=== PATIENT | male | born 1935 | race Caucasian/White ===

== ENCOUNTER 2016-07-18 14:00 | Inpatient (IN) | payer MEDICARE ==
[~2016-07-18] VITALS: Ht 170.2 cm; Wt 85.8 kg
[2016-08-05] MEDS ORDERED: MULTTAB67 PO (09:36)
[2016-08-05] MEDS ORDERED: ROSU5 PO (11:36)
[2016-08-05] MEDS ORDERED: NEXI20CA PO (11:36)
[2016-08-05] MEDS ORDERED: DONE10TA7 PO (11:39)
[2016-08-05] MEDS ORDERED: ESCI20TA PO (14:17)
[2016-08-05] MEDS ORDERED: ASPI-110 PO (14:17)
[2016-08-05] MEDS ORDERED: MEMA1TAB2 PO (14:17)
--- NOTE | 2016-08-11 09:20 | MH ---
cc: Hal BAROLW M.D. DATE OF ADMISSION: 08/15/2016 ADMITTING DIAGNOSIS: Osteoarthritic degeneration of right knee. ADMISSION HISTORY AND PHYSICAL This pleasant 81-year-old male is being admitted today for a right total knee arthroplasty due to severe painful osteoarthritic degeneration. OTHER PAST HISTORY The patient has a history of - 1. Depression. 2. Prostate cancer. 3. Heart disease. 4. Hernia. 5. Sleep apnea. 6. Previous stroke. CURRENT MEDICATIONS 1. Nexium. 2. Lipitor. 3. Escitalopram. 4. Donepezil. 5. Memantine hydrochloride. 6. . PREVIOUS SURGERIES 1. Heart bypass in 1998. 2. Right knee surgery many years, 3. Cervical fusion C4-5. REVIEW OF SYSTEMS Noncontributory. FAMILY HISTORY Noncontributory. SOCIAL HISTORY Does not smoke or drink. ALLERGIES CIPRO, SULFA, JEAN-PAUL-POLYSPORIN, ROXICET, AUGMENTIN. PHYSICAL EXAMINATION GENERAL: We find a 81-year-old male, well-developed, well-nourished, oriented x 3, complaining of pain in his right knee. VITAL SIGNS: Blood pressure 130/82, pulse 78 and regular, respirations 16, temperature 98.0, pulse oximetry 97% on room air. HEAD, EYES, EARS, NOSE, AND THROAT: Eyes - pupils equal, round, reactive to light and accommodation; extraocular movements intact. Ears, nose and throat clear. NECK: Supple. LUNGS: Clear. HEART: Regular rate. ABDOMEN: Soft, positive bowel sounds, nontender. EXTREMITIES: Reveals the right knee to have range of motion -5 with extension and 90 with flexion with a 3+ anterior drawer. He is neurovascularly intact. IMPRESSION AT THIS TIME Severe painful osteoarthritic degeneration of right knee. PLAN The plan is admission for right total knee arthroplasty today. The patient given a prescription for postoperative pain and anticoagulation control in the office. Understands to use Hibiclens scrub and Bactroban. Plans on going home with home health care after his stay in the hospital. MD HAKAN Paulson/PEDRO /3:43 PM /9:12 AM
[2016-08-15] MEDS ORDERED: CLINDAMYCIN INJ 900 MG in SODIUM CHLORIDE 0.9% INJ 100 ML IV SCH ×2
[2016-08-15] MEDS ORDERED: LACTATED RINGER'S 1000 ML INJ 2,000 ML IV ONE (12:00)
[2016-08-15] MEDS ORDERED: PROPOFOL 200 MG/20 ML AMP IV ONE (12:00)
[2016-08-15] MEDS ORDERED: ONDANSETRON HCL 4 MG/2 ML VIAL IV PUSH ONE (12:00)
[2016-08-15] MEDS ORDERED: ROPIVACAINE 0.5% PF INJ 30 ML VIAL NERV BLOCK ONE (12:19)
[2016-08-15] MEDS ORDERED: POVIDONE IODINE 5% (ANTISEPSIS KIT) 4 APPLICATIONS EACH NARE PRN (13:15)
[2016-08-15] MEDS ORDERED: VANCOMYCIN 1000 MG/NS 250 ML (for <70 kg) IV SCH ×2 (13:15)
[2016-08-15] MEDS ORDERED: METOPROLOL TARTRATE 25 MG TAB PO PRN (13:15)
[2016-08-15] MEDS ORDERED: CHLORHEXIDINE GLUCONATE 2 % 1 PACK (2 CLOTHS) TOPICAL PRN (13:15)
[2016-08-15] MEDS ORDERED: SODIUM CHLORID 0.9% 500 ML IV PRN (13:15)
[2016-08-15] MEDS ORDERED: LACTATED RINGER'S 1000 ML IV PRN (13:15)
[2016-08-15] MEDS ORDERED: INSULIN HUMAN REGULAR 1,000 UNITS/10 ML VIAL SQ PRN (13:15)
[2016-08-15] MEDS ORDERED: CHLORHEXIDINE GLUCONATE 4% SOLN 120 ML BTL TOPICAL SCH (13:15)
[2016-08-15] MEDS ORDERED: ceFAZolin 2 GM PREMIX 50 ML IV SCH (13:15)
[2016-08-15 13:35] VITALS: BP 159/77; PULSE 59; RESP 16; TEMP 97.9; O2SAT 96
[2016-08-15] MEDS ORDERED: TRANEXAMIC ACID INJ 857 MG in SODIUM CHLORIDE 0.9% INJ 100 ML IV SCH ×2 (14:00→18:00)
[2016-08-15] MEDS ORDERED: ceFAZolin INJ 1,000 MG VIAL ONE (15:00)
[2016-08-15] MEDS ORDERED: EXPAREL PERI-ARTICULAR INJECTION (TOTAL VOL. 120 ML) P-ARTICULR SCH ×2 (15:00)
[2016-08-15] MEDS ORDERED: TOBRAMYCIN SULFATE 1200 MG VIAL ONE (15:11)
[2016-08-15] MEDS ORDERED: DEXAMETHASONE SOD PHOS 4 MG/ML VIAL ONE (15:51)
[2016-08-15] MEDS ORDERED: FAMOTIDINE 20 MG/2 ML VIAL ONE (15:51)
--- NOTE | 2016-08-15 16:26 | HHI.FF ---
Face to Face Verification Diagnosis: (1) Status post total right knee replacement Physical Therapy Gait training Knee: Total knee, Protocol: Right, Gait training, Full weight bearing Nursing RN: 3 days/week x 2 weeks Nursing: Raghu teaching, Dressing changes Dressing Changes: Daily dressing change, 4x4s, Gauze, Paper tape I have seen patient Binu Botello on 08/15/16. My clinical findings support the need for the requested home health care services because: Limited ability to care for self High risk of falls I certify that my clinical findings support that this patient is homebound because: Unsteady gait/balance Hal Do MD Aug 15, 2016 16:26
[2016-08-15] MEDS ORDERED: ADJUSTABLE COMM1 MIS (16:28)
[2016-08-15] MEDS ORDERED: WALKER WHEELS/F1 MIS (16:28)
[2016-08-15] MEDS ORDERED: Post-op Orders (for Pharmacy) MISC XX ONE (16:30)
[2016-08-15] MEDS ORDERED: MORPHINE SULFATE 30 MG/30 ML PCA IV SCH (16:30)
[2016-08-15] MEDS ORDERED: NALOXONE HCL 0.4 MG/ML AMP IV PRN ×2 (16:30)
[2016-08-15] MEDS ORDERED: ACETAMINOPHEN 325 MG TAB PO PRN (16:30)
[2016-08-15] MEDS ORDERED: ACETAMINOPHEN/HYDROcodone 325 MG/7.5 MG TAB PO PRN (16:30)
[2016-08-15] MEDS ORDERED: SODIUM CHLORIDE 0.9% FLUSH 5 ML FLUSH IVF PRN (16:30)
[2016-08-15] MEDS ORDERED: TRANEXAMIC ACID INJ 0 MG in SODIUM CHLORIDE 0.9% INJ 100 ML IV SCH (16:30)
[2016-08-15] MEDS ORDERED: TEMAZEPAM 15 MG CAP PO PRN (16:30)
[2016-08-15] MEDS ORDERED: diphenhydrAMINE HCL 50 MG/ML VIAL IV PRN (16:30)
[2016-08-15] MEDS ORDERED: ONDANSETRON HCL 4 MG/2 ML VIAL IVP PRN (16:30)
[2016-08-15] MEDS: LACTATED RINGER'S 1000 ML INJ 1,000 ML IV SCH (19:05)
--- NOTE | 2016-08-15 19:06 | PD.CONS ---
HPI Service [facility] Consult Requested By Orthopedic surgery Reason for Consult Medical management Primary Care Physician Meera Vargas DO Diagnoses: History of Present Illness 81-year-old man with a history of end-stage right knee osteoarthritis x several years duration, who despite medical management continue to have severe right knee pain affecting his daily living of activity including ambulation was taken to the OR and underwent right total knee arthroplasty. Patient was seen in PACU and denies any shortness of breath or chest pain. Vitals at the time are stable Review of Systems Except as stated in HPI: all other systems reviewed are Neg Past Family Social History Allergies: Coded Allergies: Augmentin (Unverified Allergy, Severe, unknown, 08/05/16) Bactrim (Unverified Allergy, Severe, unknown, 08/05/16) Cipro (Unverified Allergy, Severe, hives, 08/05/16) Neosporin (Unverified Allergy, Severe, hives and blistering, 08/05/16) Roxicet (Unverified Allergy, Severe, Rash, 08/05/16) Sulfa (Unverified Allergy, Severe, unknown, 08/05/16) Tramadol (Verified Allergy, Severe, RASH, 08/05/16) Past Medical History 1. Depression. 2. Prostate cancer. 3. Heart disease. 4. Hernia. 5. Sleep apnea. 6. Previous stroke. Past Surgical History Status post right total knee arthroplasty 08/15/16 Hernia repair Reported Medications 1. Nexium. 2. Lipitor. 3. Escitalopram. 4. Donepezil. 5. Memantine hydrochloride. Family History Noncontributory Social History No report of tobacco, alcohol or illicit drug intake Physical Exam Vital Signs Vital Signs Date Time Temp Pulse Resp B/P Pulse Ox O2 Delivery O2 Flow Rate FiO2 08/15/16 13:35 97.9 59 16 159/77 96 Physical Exam GENERAL: This is a well-nourished, well-developed patient, in no apparent distress. SKIN: No rashes, ecchymoses or lesions. Cool and dry. HEAD: Atraumatic. Normocephalic. No temporal or scalp tenderness. EYES: Pupils equal round and reactive. Extraocular motions intact. No scleral icterus. No injection or drainage. ENT: Nose without bleeding, purulent drainage or septal hematoma. Throat without erythema, tonsillar hypertrophy or exudate. Uvula midline. Airway patent. NECK: Trachea midline. No JVD or lymphadenopathy. Supple, nontender, no meningeal signs. CARDIOVASCULAR: Regular rate and rhythm without murmurs, gallops, or rubs. RESPIRATORY: Clear to auscultation. Breath sounds equal bilaterally. No wheezes , rales, or rhonchi. GASTROINTESTINAL: Abdomen soft, non-tender, nondistended. No hepato-splenomegaly , or palpable masses. No guarding. MUSCULOSKELETAL: Extremities without clubbing, cyanosis, or edema. Right knee repair-neurovascular intact NEUROLOGICAL: Awake and alert. Cranial nerves II through XII intact. Motor and sensory grossly within normal limits. Five out of 5 muscle strength in all muscle groups. Normal speech. Laboratory Laboratory Tests Test 08/15/16 13:40 Blood Type A POSITIVE Antibody Screen NEGATIVE Blood Bank Comment Assessment and Plan Assessment and Plan 81-year-old man with Right knee osteoarthritis: Status post right total knee arthroplasty 08/15/16. Management per orthopedic surgery, continue current postop care with pain management, postop antibiotics, antiemetics. PT consult to treat and eval Dementia: Continue outpatient medication including Namenda and Aricept Anxiety: Continue Lexapro DVT prophylaxis: Lovenox Thank you for this consultation Code Status Full code Discussed Condition With patient Johnnie Hale MD Aug 15, 2016 19:05
[2016-08-15] MEDS ORDERED: ENALAPRILAT 1.25 MG/ML VIAL IV PUSH PRN (19:15)
[2016-08-15] MEDS ORDERED: RESP: ALBUTEROL 2.5 MG/IPRATROPIUM 0.5 MG NEB (PRN) NEB (19:15)
--- NOTE | 2016-08-15 19:26 | RADRPT ---
EXAM DATE/TIME: 08/15/2016 19:03 [facility] COMPARISON: No previous studies available for comparison. INDICATIONS : Evaluate right knee post arthroplasty MEDICAL HISTORY : Arthritis. SURGICAL HISTORY : None. ENCOUNTER: Initial ACUITY: 1 day PAIN SCORE: 0/10 LOCATION: Right Knee FINDINGS: Patient is immediately status post right total knee arthroplasty. No fracture. Alignment is normal. CONCLUSION: Right knee arthroplasty has an expected postoperative appearance. No evidence of acute complication. Osman Moreno MD on August 15, 2016 at 19:24 Board Certified Radiologist. This report was verified electronically.
[2016-08-15] MEDS ORDERED: DO NOT ADM ANY ANTICOAGULANT DRUGS PRN (19:30)
[2016-08-15 20:31] VITALS: BP 182/95; PULSE 102; RESP 19; TEMP 96.7; O2SAT 98
[2016-08-15 20:44] VITALS: O2SAT 100
[2016-08-15] MEDS: SODIUM CHLORIDE 0.9% FLUSH 5 ML FLUSH IVF SCH (21:25)
[2016-08-15] MEDS: PCA - TOTAL MG MORPHINE DELIVERED PER SHIFT SCH (21:30)
[2016-08-15] MEDS: DONEPEZIL HCL 5 MG TAB PO SCH (21:30)
[2016-08-15] MEDS: MEMANTINE HCL 10 MG TAB PO SCH (21:30)
[2016-08-15] MEDS: ceFAZolin 1,000 MG/NS 100 ML IV SCH ×2 (23:15)
[2016-08-16] VITALS (8 sets, daily range): BP systolic 114–151; BP diastolic 61–84; PULSE 59–89; RESP 16–19; TEMP 96.4–99.6; O2SAT 92–99
[2016-08-16] MEDS: LACTATED RINGER'S 1000 ML INJ 1,000 ML IV SCH ×2 (05:33→18:00)
[2016-08-16] MEDS: PCA - TOTAL MG MORPHINE DELIVERED PER SHIFT SCH ×2 (05:49→12:22)
[2016-08-16 06:25] LABS: HEMATOCRIT 35.9 % (39.0-51.0); REVIEW FLAG FINAL
[2016-08-16] MEDS ORDERED: NON-FORMULARY DRUG (Multiple Vitamin 1 TAB) PO SCH (09:00)
[2016-08-16] MEDS ORDERED: NON-FORMULARY DRUG (Rosuvastatin (Crestor) 5 MG) PO SCH (09:00)
[2016-08-16] MEDS: SODIUM CHLORIDE 0.9% FLUSH 5 ML FLUSH IVF SCH ×2 (09:00→20:27)
[2016-08-16] MEDS ORDERED: NON-FORMULARY DRUG (Esomeprazole DR (Nexium) 20 MG) PO SCH (09:00)
[2016-08-16] MEDS ORDERED: MULTIVITAMIN TAB PO SCH (09:00)
[2016-08-16] MEDS: ASPIRIN EC 81 MG TABEC PO SCH (09:06)
[2016-08-16] MEDS: PANTOPRAZOLE SOD 20 MG DELAYED RELEASE TAB PO SCH (09:06)
[2016-08-16] MEDS: ESCITALOPRAM OXALATE 20 MG TAB PO SCH (09:06)
[2016-08-16] MEDS: ATORVASTATIN 10 MG TAB PO SCH (09:06)
[2016-08-16] MEDS: ceFAZolin 1,000 MG/NS 100 ML IV SCH ×4 (09:06→16:27)
[2016-08-16] MEDS: MEMANTINE HCL 10 MG TAB PO SCH ×2 (09:06→20:26)
[2016-08-16] MEDS ORDERED: CPMMACHINE (11:27)
--- NOTE | 2016-08-16 11:43 | PD.ORT.PN ---
Subjective Post Op Day #: 1 Pain Scale: 0-2 Subjective Remarks Resting in bed; at bedside CPM on right knee No N/V; tolerating food well pain controlled No BM Leg still numb (block) Objective Vitals Vital Signs Date Time Temp Pulse Resp B/P Pulse Ox O2 Delivery O2 Flow Rate FiO2 08/16/16 09:44 21 08/16/16 08:10 96.4 64 18 143/77 99 08/16/16 04:16 96.7 64 18 118/62 97 08/16/16 00:28 96.7 59 18 151/84 98 08/15/16 21:30 16 08/15/16 20:44 100 Nasal Cannula 2.00 08/15/16 20:31 96.7 102 19 182/95 98 08/15/16 19:50 50 17 150/88 100 Nasal Cannula 2 08/15/16 19:05 18 08/15/16 19:00 51 17 145/87 100 Nasal Cannula 2 08/15/16 18:45 54 13 141/81 98 Nasal Cannula 2 08/15/16 18:41 97.5 56 15 133/73 98 Nasal Cannula 2 08/15/16 13:35 97.9 59 16 159/77 96 I/O 08/15/16 08/15/16 08/15/16 08/16/16 08/16/16 08/16/16 06:59 14:59 22:59 06:59 14:59 22:59 Intake Total 2473 ml 896 ml Output Total 200 ml 1250 ml Balance 2273 ml -354 ml Intake Oral 460 ml 240 ml IV Total 513 ml 656 ml Other 1500 ml Output Urine Total 0 ml 1250 ml Estimated Blood Loss 200 ml Bladder Scan Volume Amount 999 ml # Voids 2 # Bowel Movements 0 0 Result Diagram: 08/16/16 0533 Imaging Last 24 hours Impressions Knee X-Ray 08/15/16 1622 Signed Impressions: Service Date/Time: Monday, August 15, 2016 19:03 - CONCLUSION: Right knee arthroplasty has an expected postoperative appearance. No evidence of acute complication. Osman Moreno MD Objective Remarks POD 1 Right Total Knee Arthroplasty Normal post progress Awake, Alert X3; No acute distress Pulmonary: Normal Respiratory effect Right knee: dressing, dry and intact; coolant; nvi, no calf tenderness; negative Homans sign Assessment & Plan Ortho Post Op Day #: 1 Problem List: Assessment and Plan POD 1 Right Total Knee Arthroplasty Doing well normal postop progress; no complaints Anticoagulation: Lovenox while in hospital Weight bearing: as tolerated; once feeling awake Dressing change: POD 2 PT on going Discharge planning in progress DC [facility] today at 1800 Rayne Pace Aug 16, 2016 11:43
--- NOTE | 2016-08-16 12:35 | MP ---
cc: Hal BARLOW M.D. DATE OF SURGERY 08/15/2016 PREOPERATIVE DIAGNOSIS Osteoarthritic degeneration right knee. POSTOPERATIVE DIAGNOSIS Osteoarthritic degeneration right knee. SURGERY PERFORMED Right total knee arthroplasty using Consensus Knee System components, size 5 femur, 3 tibia, 10 insert and size 1 patella with two batches of DePuy cement impregnated with Tobramycin antibiotic. SURGEON Dr. Barlow OPERATING THEATRE TECHNICIAN RE Brown ANESTHESIA Spinal. PROCEDURE After successful induction of anesthesia, the patient is placed on the operating room table in the supine position. The knee is prepped and draped in the usual manner. A tourniquet is inflated at the upper thigh and set to 300 mmHg pressure after exsanguination of the lower extremity. A longitudinal incision is made extending from 3 inches proximal to the superior pole of the patella, across the patella in longitudinal fashion, and down past the insertion of the tibial tubercle into the proximal tibia. The incision is carried down through subcutaneous tissue along the medial aspect of the patella and retinaculum, down through the capsule to expose the knee joint. The patella and patellar tendon are freed up enough to allow the patella to be inverted and retracted off the lateral side of the knee joint. The knee joint is left exposed. Small osteophytes are removed. All soft tissue is removed to allow proper position of the femoral and tibial cutting jig guide. The first femoral jig is then inserted along the distal end of the femur after first measuring to decide whether this is a small, medium, or large component. The notch is then drilled and the tibial cutting guide inserted into the femoral cutting guide, along with the ankle brace to allow for proper measurement of the tibial cutting surface that needed to be resected. Pins are inserted into the tibial cutting jig and femoral cutting jig to hold them in place. An oscillating saw is then used to resect the surface of the tibia. The surface of the tibia is then completely removed using sharp and blunt dissection. The anterior and posterior cuts of the femur are then made as well using an oscillating saw through the cutting guide. All guides are then removed and the varus/valgus angulation cutting guide applied to the femur for proper measurement of the proper amount of valgus. The anterior cutting guide for the femur is then inserted at the anterior femoral cuts made. Next, the first block trial is inserted into the femur to allow for proper condyle drill holes to be made which are then made followed by removal of the bone between the condyles using an oscillating saw as well as the bone removed at the most posterior surface of the condyle. After this, this guide is removed and the chamfer cuts made using the chamfer cutting guide from both anterior and posterior. Next, the femoral trial is then inserted, the tibial surface reflected anterior to expose the tibial surface and a tibial stem guide is inserted after first measuring for a standard, standard plus, large, or large plus surface to be used. After the stem is impacted the trial tibial surface is applied followed by the trial meniscal components. After full range of motion is found with the appropriate length meniscal components varying the patella is prepared by resecting the posterior aspect of the patella using an oscillating saw, inserting a trial. The trial is then removed and the cruciate cutting guide applied using the bur to cut the cruciate cuts. After cruciate cuts are made all trials are removed. The wound is irrigated copiously with antibiotic solution and Water Pik and the actual components inserted into place using Consensus Knee System components, size 5 femur, 3 tibia, 10 insert and size 1 patella with two batches of Rent.comuy cement. After the cement has hardened and the components are found to have full range of motion with no instability, the tourniquet is deflated, total tourniquet time being 48 minutes at 300 mmHg pressure. The wound again is irrigated copiously with antibiotic solution, meticulous hemostasis achieved. 60 cc of Exparel was used around the knee joint for extra pain control. The deep fascia was approximated with running #2 Quill, the subcutaneous tissue approximated using interrupted and running 2-0 and 4-0 Monocryl suture, Steri-Strips, sterile dressing and knee immobilizers. No drain utilized. Rayne GRIMALDO was present during the entire procedure to include patient positioning and the procedure. The medical necessity a nurse practitioner machinist first class was indicated in this case due to the surgical complexity of the case itself. During the surgical case, the surgical resident was working the back table while my ophthalmology surgical technician RE was directly assisting me. The patient tolerated the procedure well and left the operating in satisfactory condition. ESTIMATED BLOOD LOSS 200 cc. MD HAKAN Paulson/MAMTA /6:26 PM /12:28 PM ARABELLA
--- NOTE | 2016-08-16 15:26 | HHI.PR ---
Subjective Remarks Patient in bed, appears in nad. at bedside. Patient says he is using CPAP at night usually and says he has hi sown cpap but was not installed overnight. He is not sob, No cp, sob, n/v/d/c. Denies fever or chills. Pain is controlled by meds. Objective Vitals Vital Signs Date Time Temp Pulse Resp B/P Pulse Ox O2 Delivery O2 Flow Rate FiO2 08/16/16 12:22 97.4 70 16 134/80 96 08/16/16 12:22 18 08/16/16 09:44 21 08/16/16 08:10 96.4 64 18 143/77 99 08/16/16 04:16 96.7 64 18 118/62 97 08/16/16 00:28 96.7 59 18 151/84 98 08/15/16 21:30 16 08/15/16 20:44 100 Nasal Cannula 2.00 08/15/16 20:31 96.7 102 19 182/95 98 08/15/16 19:50 50 17 150/88 100 Nasal Cannula 2 08/15/16 19:05 18 08/15/16 19:00 51 17 145/87 100 Nasal Cannula 2 08/15/16 18:45 54 13 141/81 98 Nasal Cannula 2 08/15/16 18:41 97.5 56 15 133/73 98 Nasal Cannula 2 I/O 08/15/16 08/15/16 08/15/16 08/16/16 08/16/16 08/16/16 07:00 15:00 23:00 07:00 15:00 23:00 Intake Total 2473 ml 896 ml 442 ml Output Total 200 ml 1250 ml 300 ml Balance 2273 ml -354 ml 142 ml Intake Oral 460 ml 240 ml IV Total 513 ml 656 ml 442 ml Other 1500 ml Output Urine Total 0 ml 1250 ml 300 ml Estimated Blood Loss 200 ml Bladder Scan Volume Amount 999 ml # Voids 2 # Bowel Movements 0 0 Result Diagram: 08/16/16 0533 Imaging Last Impressions Knee X-Ray 08/15/16 1622 Signed Impressions: Service Date/Time: Monday, August 15, 2016 19:03 - CONCLUSION: Right knee arthroplasty has an expected postoperative appearance. No evidence of acute complication. Osman Moreno MD Objective Remarks GENERAL: This is a well-nourished, well-developed patient, in no apparent distress. NECK: Trachea midline. No JVD or lymphadenopathy. Supple, nontender, no meningeal signs. CARDIOVASCULAR: Regular rate and rhythm without murmurs, gallops, or rubs. RESPIRATORY: Clear to auscultation. Breath sounds equal bilaterally. No wheezes , rales, or rhonchi. GASTROINTESTINAL: Abdomen soft, non-tender, nondistended. No hepato-splenomegaly , or palpable masses. No guarding. MUSCULOSKELETAL: S/P Right knee repair-neurovascular intact. Extremities without clubbing, cyanosis, or edema. NEUROLOGICAL: Awake and alert. Cranial nerves II through XII intact. Motor and sensory grossly within normal limits. Five out of 5 muscle strength in all muscle groups. Normal speech. A/P Assessment and Plan 81-year-old man with Right knee osteoarthritis: Status post right total knee arthroplasty 08/15/16. Management per orthopedic surgery, continue current postop care with pain management, postop antibiotics, antiemetics. PT consult to treat and eval Sleep apnea: Patient to use his own CPAP at night. ordered CPAP at night Constipation: laxatives/stool softeners. Dementia: Continue outpatient medication including Namenda and Aricept Anxiety: Continue Lexapro DVT prophylaxis: Lovenox Thank you for this consultation Code Status Full code Discussed Condition With patient, nurse, family at bedside Mayi Wilkerson MD Aug 16, 2016 15:26
[2016-08-16] MEDS ORDERED: SENNOSIDES 8.6 MG TAB PO PRN (16:00)
[2016-08-16] MEDS ORDERED: BISACODYL 10 MG SUPP RECTAL PRN (16:00)
[2016-08-16] MEDS: ENOXAPARIN SODIUM 30 MG/0.3 ML SYRINGE SQ SCH (18:05)
[2016-08-16] MEDS: MULTIVITAMINS/MINERALS THERAPEUTIC TAB PO SCH (20:25)
[2016-08-16] MEDS: DOCUSATE SODIUM 50 MG/SENNA 8.6 MG TAB PO SCH (20:25)
[2016-08-16] MEDS: MAGNESIUM HYDROXIDE SUSP 30 ML CUP PO PRN (20:25)
[2016-08-16] MEDS: DONEPEZIL HCL 5 MG TAB PO SCH (20:26)
[2016-08-16] MEDS: ACETAMINOPHEN/HYDROcodone 325 MG/7.5 MG TAB PO PRN (20:40)
[2016-08-16] MEDS ORDERED: DOCUSATE SODIUM 100 MG CAP PO SCH (21:00)
[2016-08-17] VITALS (7 sets, daily range): BP systolic 124–139; BP diastolic 60–71; PULSE 68–86; RESP 16–18; TEMP 96.2–98.6; O2SAT 92–96
[2016-08-17] MEDS: LACTATED RINGER'S 1000 ML INJ 1,000 ML IV SCH ×2 (04:33→17:18)
[2016-08-17] MEDS: ACETAMINOPHEN/HYDROcodone 325 MG/7.5 MG TAB PO PRN (04:55)
[2016-08-17] MEDS: ENOXAPARIN SODIUM 30 MG/0.3 ML SYRINGE SQ SCH ×2 (04:56→16:53)
[2016-08-17 07:12] LABS: HEMATOCRIT 33.2 % (39.0-51.0); REVIEW FLAG FINAL
--- NOTE | 2016-08-17 07:56 | PD.ORT.PN ---
Subjective Subjective Remarks pt having some pain today. Objective Vitals Vital Signs Date Time Temp Pulse Resp B/P Pulse Ox O2 Delivery O2 Flow Rate FiO2 08/17/16 03:21 98.6 86 18 130/66 92 08/16/16 23:21 98.9 87 18 126/61 92 08/16/16 21:03 114/67 08/16/16 20:10 99.6 89 19 147/74 92 08/16/16 16:20 97.1 74 18 139/70 96 08/16/16 12:22 97.4 70 16 134/80 96 08/16/16 12:22 18 08/16/16 09:44 21 08/16/16 08:10 96.4 64 18 143/77 99 I/O 08/16/16 08/16/16 08/16/16 08/17/16 08/17/16 08/17/16 06:59 14:59 22:59 06:59 14:59 22:59 Intake Total 896 ml 642 ml 820 ml 480 ml Output Total 1250 ml 300 ml Balance -354 ml 342 ml 820 ml 480 ml Intake Oral 240 ml 200 ml 480 ml 480 ml IV Total 656 ml 442 ml 340 ml Output Urine Total 1250 ml 300 ml Bladder Scan Volume Amount 999 ml # Voids 3 3 # Bowel Movements 0 0 0 Result Diagram: 08/17/16 0659 Imaging Last 24 hours Impressions Knee X-Ray 08/15/16 1622 Signed Impressions: Service Date/Time: Monday, August 15, 2016 19:03 - CONCLUSION: Right knee arthroplasty has an expected postoperative appearance. No evidence of acute complication. Osman Moreno MD Objective Remarks Normal post progress Awake, Alert X3; No acute distress Pulmonary: Normal Respiratory effect Right knee: dressing, dry and intact; coolant; nvi, no calf tenderness; negative Homans sign Assessment & Plan Ortho Post Op Day #: 2 Problem List: Assessment and Plan POD 2 Right Total Knee Arthroplasty Doing well normal postop progress; no complaints Anticoagulation: Lovenox while in hospital Weight bearing: as tolerated; once feeling awake Dressing change: POD 2 PT on going Discharge planning in progress Hal Do MD Aug 17, 2016 07:56
[2016-08-17] MEDS: SODIUM CHLORIDE 0.9% FLUSH 5 ML FLUSH IVF SCH ×2 (09:00→20:01)
[2016-08-17] MEDS ORDERED: ACETAMINOPHEN/HYDROcodone 325 MG/5 MG TAB PO PRN (09:00)
[2016-08-17] MEDS: ESCITALOPRAM OXALATE 20 MG TAB PO SCH (09:58)
[2016-08-17] MEDS: ASPIRIN EC 81 MG TABEC PO SCH (09:58)
[2016-08-17] MEDS: MEMANTINE HCL 10 MG TAB PO SCH ×2 (09:58→20:01)
[2016-08-17] MEDS: DOCUSATE SODIUM 50 MG/SENNA 8.6 MG TAB PO SCH ×2 (09:58→20:01)
[2016-08-17] MEDS: MULTIVITAMINS/MINERALS THERAPEUTIC TAB PO SCH ×2 (09:58→20:01)
[2016-08-17] MEDS: ATORVASTATIN 10 MG TAB PO SCH (09:58)
[2016-08-17] MEDS: PANTOPRAZOLE SOD 20 MG DELAYED RELEASE TAB PO SCH (09:58)
[2016-08-17] MEDS: ACETAMINOPHEN/HYDROcodone 325 MG/5 MG TAB PO PRN ×3 (09:59→18:08)
[2016-08-17] MEDS ORDERED: BACITRACIN OINT 0.9 GM PKT TOP PRN (10:15)
--- NOTE | 2016-08-17 14:10 | HHI.PR ---
Subjective Remarks Says he did not use capap overnight and he was not able to sleep much . Denies any cp, sob, n/v/d/c. Pain is controlled by meds. Objective Vitals Vital Signs Date Time Temp Pulse Resp B/P Pulse Ox O2 Delivery O2 Flow Rate FiO2 08/17/16 12:00 96.2 75 18 131/70 95 08/17/16 10:38 96 21 08/17/16 08:00 98.3 68 18 139/71 93 08/17/16 03:21 98.6 86 18 130/66 92 08/16/16 23:21 98.9 87 18 126/61 92 08/16/16 21:03 114/67 08/16/16 20:10 99.6 89 19 147/74 92 08/16/16 16:20 97.1 74 18 139/70 96 I/O 08/16/16 08/16/16 08/16/16 08/17/16 08/17/16 08/17/16 07:00 15:00 23:00 07:00 15:00 23:00 Intake Total 896 ml 642 ml 820 ml 480 ml Output Total 1250 ml 300 ml Balance -354 ml 342 ml 820 ml 480 ml Intake Oral 240 ml 200 ml 480 ml 480 ml IV Total 656 ml 442 ml 340 ml Output Urine Total 1250 ml 300 ml Bladder Scan Volume Amount 999 ml # Voids 3 3 # Bowel Movements 0 0 0 Result Diagram: 08/17/16 0659 Imaging Last Impressions Knee X-Ray 08/15/16 1622 Signed Impressions: Service Date/Time: Monday, August 15, 2016 19:03 - CONCLUSION: Right knee arthroplasty has an expected postoperative appearance. No evidence of acute complication. Osman Moreno MD Objective Remarks GENERAL: This is a well-nourished, well-developed patient, in no apparent distress. NECK: Trachea midline. No JVD or lymphadenopathy. Supple, nontender, no meningeal signs. CARDIOVASCULAR: Regular rate and rhythm without murmurs, gallops, or rubs. RESPIRATORY: Clear to auscultation. Breath sounds equal bilaterally. No wheezes , rales, or rhonchi. GASTROINTESTINAL: Abdomen soft, non-tender, nondistended. No hepato-splenomegaly , or palpable masses. No guarding. MUSCULOSKELETAL: S/P Right knee repair-neurovascular intact. Extremities without clubbing, cyanosis, or edema. NEUROLOGICAL: Awake and alert. Cranial nerves II through XII intact. Motor and sensory grossly within normal limits. Five out of 5 muscle strength in all muscle groups. Normal speech. A/P Assessment and Plan 81-year-old man with Right knee osteoarthritis: Status post right total knee arthroplasty 08/15/16. Management per orthopedic surgery, continue current postop care with pain management, postop antibiotics, antiemetics. PT consult to treat and eval h/H stable post op. Sleep apnea: Patient to use his own CPAP at night. ordered CPAP at night Constipation: laxatives/stool softeners. Dementia: Continue outpatient medication including Namenda and Aricept Anxiety: Continue Lexapro DVT prophylaxis: Lovenox Thank you for this consultation, will follow along. Code Status Full code Discussed Condition With patient, nurse, family at bedside () Mayi Wilkerson MD Aug 17, 2016 14:10
[2016-08-17] MEDS: MAGNESIUM HYDROXIDE SUSP 30 ML CUP PO PRN (20:01)
[2016-08-17] MEDS: DONEPEZIL HCL 5 MG TAB PO SCH (20:01)
[2016-08-18] VITALS (7 sets, daily range): BP systolic 136–165; BP diastolic 69–86; PULSE 75–83; RESP 16–18; TEMP 97.5–99.5; O2SAT 94–96
[2016-08-18] MEDS: LACTATED RINGER'S 1000 ML INJ 1,000 ML IV SCH ×2 (05:20→20:00)
[2016-08-18] MEDS: ACETAMINOPHEN/HYDROcodone 325 MG/5 MG TAB PO PRN ×4 (05:36→20:56)
[2016-08-18] MEDS: ENOXAPARIN SODIUM 30 MG/0.3 ML SYRINGE SQ SCH ×2 (05:36→16:55)
[2016-08-18] MEDS: SODIUM CHLORIDE 0.9% FLUSH 5 ML FLUSH IVF SCH ×2 (09:00→20:56)
[2016-08-18] MEDS: ESCITALOPRAM OXALATE 20 MG TAB PO SCH (09:30)
[2016-08-18] MEDS: LACTULOSE SYRUP 20 GM/30 ML CUP PO PRN (09:30)
[2016-08-18] MEDS: MEMANTINE HCL 10 MG TAB PO SCH ×2 (09:31→20:56)
[2016-08-18] MEDS: MULTIVITAMINS/MINERALS THERAPEUTIC TAB PO SCH ×2 (09:31→20:56)
[2016-08-18] MEDS: DOCUSATE SODIUM 50 MG/SENNA 8.6 MG TAB PO SCH ×2 (09:31→20:56)
[2016-08-18] MEDS: ASPIRIN EC 81 MG TABEC PO SCH (09:31)
[2016-08-18] MEDS: ATORVASTATIN 10 MG TAB PO SCH (09:31)
[2016-08-18] MEDS: PANTOPRAZOLE SOD 20 MG DELAYED RELEASE TAB PO SCH (09:31)
--- NOTE | 2016-08-18 09:45 | PD.ORT.PN ---
Subjective Subjective Remarks pt having less pain today. Objective Vitals Vital Signs Date Time Temp Pulse Resp B/P Pulse Ox O2 Delivery O2 Flow Rate FiO2 08/18/16 08:00 99.5 76 18 165/86 94 08/18/16 04:35 98.6 80 16 149/72 94 08/18/16 00:30 98.0 75 16 136/69 94 08/17/16 21:34 94 21 08/17/16 20:30 97.5 77 16 135/60 94 08/17/16 16:00 96.9 70 18 124/70 93 08/17/16 12:00 96.2 75 18 131/70 95 08/17/16 10:38 96 21 I/O 08/17/16 08/17/16 08/17/16 08/18/16 08/18/16 08/18/16 07:00 15:00 23:00 07:00 15:00 23:00 Intake Total 480 ml 720 ml 120 ml Output Total 350 ml Balance 480 ml 370 ml 120 ml Intake Oral 480 ml 720 ml 120 ml Output Urine Total 350 ml # Voids 3 0 2 # Bowel Movements 0 0 0 Result Diagram: 08/17/16 0659 Imaging Last 24 hours Impressions Knee X-Ray 08/15/16 1622 Signed Impressions: Service Date/Time: Monday, August 15, 2016 19:03 - CONCLUSION: Right knee arthroplasty has an expected postoperative appearance. No evidence of acute complication. Osman Moreno MD Objective Remarks Normal post progress Awake, Alert X3; No acute distress Pulmonary: Normal Respiratory effect Right knee: dressing, dry and intact; coolant; nvi, no calf tenderness; negative Homans sign Assessment & Plan Ortho Post Op Day #: 3 Problem List: Assessment and Plan POD 3 Right Total Knee Arthroplasty Doing well normal postop progress; no complaints Anticoagulation: Lovenox while in hospital Weight bearing: as tolerated; once feeling awake Dressing change: POD 2 PT on going Discharge planning in progress for dc to home today with [facility]. Hal Do MD Aug 18, 2016 09:45
--- NOTE | 2016-08-18 09:47 | HHI.DS ---
Discharge Summary Admission Date Aug 15, 2016 at 12:20 Discharge Date: Aug 18, 2016 Admitting Diagnosis Osteoarthritic degeneration right knee Diagnosis: (1) Status post total right knee replacement Brief History This is a 81 year old male patient CBC/BMP: 08/17/16 0659 Significant Findings Laboratory Tests Test 08/16/16 08/17/16 05:33 06:59 Hemoglobin 12.2 GM/DL 11.4 GM/DL (13.0-17.0) (13.0-17.0) Hematocrit 35.9 % 33.2 % (39.0-51.0) (39.0-51.0) PE at Discharge Normal post progress Awake, Alert X3; No acute distress Pulmonary: Normal Respiratory effect Right knee: dressing, dry and intact; coolant; nvi, no calf tenderness; negative Homans sign Hospital Course Patient underwent a right total knee arthroplasty on day of admission. He received a course of prophylactic IV antibiotics and within 23 hours started on anticoagulation therapy. He continued to improve remained afebrile vital signs stable tolerated food and fluid well switched to by mouth pain meds with minimal problem. He was discharged to home with home healthcare on the third postoperative day in good condition with instructions for follow-up care in the office. Pt Condition on Discharge: Good Discharge Disposition: Disch w/ Home Health Serv Discharge Instructions Diet Instructions: As Tolerated, No Restrictions Activities You Can Perform: Full Weight Bearing, Shower Only-No Bath Activities to Avoid: Bathing, Driving Hal Do MD Aug 18, 2016 09:47
--- NOTE | 2016-08-18 11:40 | HHI.PR ---
Subjective Remarks Patient noted with dizziness, gate abnormality, near syncope while doing PT. Patient /family would like to go come and not to SNF, however he is having gate abnormality. He di dnot fall. patient is in the chair, says she is not dizzy anymore. Says he did not have any sob, cp, palpitations. Fels a little dizzy. No loss of consciousness. Per PT walking with him he was having abnormal gate and stopped walking. says he did not have similar previous episodes at home. Patient has a h/o CVA and he is following with Dr Pelletier neurology. Patient says he doesn't have any headache. No weakness, no speech difficulty. Speech is at baseline. He also has dementia at baseline. Objective Vitals Vital Signs Date Time Temp Pulse Resp B/P Pulse Ox O2 Delivery O2 Flow Rate FiO2 08/18/16 08:00 99.5 76 18 165/86 94 08/18/16 04:35 98.6 80 16 149/72 94 08/18/16 00:30 98.0 75 16 136/69 94 08/17/16 21:34 94 21 08/17/16 20:30 97.5 77 16 135/60 94 08/17/16 16:00 96.9 70 18 124/70 93 08/17/16 12:00 96.2 75 18 131/70 95 I/O 08/17/16 08/17/16 08/17/16 08/18/16 08/18/16 08/18/16 07:00 15:00 23:00 07:00 15:00 23:00 Intake Total 480 ml 720 ml 120 ml Output Total 350 ml Balance 480 ml 370 ml 120 ml Intake Oral 480 ml 720 ml 120 ml Output Urine Total 350 ml # Voids 3 0 2 # Bowel Movements 0 0 0 Result Diagram: 08/17/16 0659 Imaging Last Impressions Knee X-Ray 08/15/16 1622 Signed Impressions: Service Date/Time: Monday, August 15, 2016 19:03 - CONCLUSION: Right knee arthroplasty has an expected postoperative appearance. No evidence of acute complication. Osman Moreno MD Objective Remarks GENERAL: This is a very pleasant 81 yo male, well-nourished, well-developed patient, in no apparent distress. NECK: Trachea midline. No JVD or lymphadenopathy. Supple, nontender, no meningeal signs. CARDIOVASCULAR: Regular rate and rhythm without murmurs, gallops, or rubs. RESPIRATORY: Clear to auscultation. Breath sounds equal bilaterally. No wheezes , rales, or rhonchi. GASTROINTESTINAL: Abdomen soft, non-tender, nondistended. No hepato-splenomegaly , or palpable masses. No guarding. MUSCULOSKELETAL: S/P Right knee repair-neurovascular intact. Extremities without clubbing, cyanosis, or edema. NEUROLOGICAL: Awake and alert. Cranial nerves II through XII intact. Motor and sensory grossly within normal limits. Five out of 5 muscle strength in all muscle groups. Normal speech. A/P Assessment and Plan 81-year-old man with Right knee osteoarthritis: Status post right total knee arthroplasty 08/15/16. Management per orthopedic surgery, continue current postop care with pain management, postop antibiotics, antiemetics. PT consult to treat and eval h/H stable post op. Patient noted with dizziness, gate abnormality, near syncope while doing PT. He has a previous h/o CVA/TIA he does follow with Dr Pelletier as OP. Will check stat CT brain, carotid US, EEG. He had a recent ECHO by his cardiology Dr Lovell who cleared him for surgery. Also EKG without change. Will consult his neurology Dr Pelletier. Sleep apnea: Patient to use his own CPAP at night. Using CPAP at night. Constipation: laxatives/stool softeners. Dementia: Continue outpatient medication including Namenda and Aricept Anxiety: Continue Lexapro DVT prophylaxis: Lovenox Thank you for this consultation, will follow along. Code Status Full code Discussed Condition With patient, nurse, family at bedside () Mayi Wilkerson MD Aug 18, 2016 11:40
[2016-08-18 13:03] LABS: AUTOMATED NEUTROPHIL # 4.9 TH/MM3 (1.8-7.7); BASOPHIL % 0.6 % (0.0-2.0); EOSINOPHIL # 0.2 TH/MM3 (0-0.4); EOSINOPHIL % 2.7 % (0.0-4.0); HEMATOCRIT 34.7 % (39.0-51.0); HEMO FLAGS DIFF FINAL; LYMPH % 10.3 % (9.0-44.0); LYMPHOCYTE # 0.7 TH/MM3 (1.0-4.8); MEAN CORPUSCULAR HEMOGLOBIN 30.7 PG (27.0-34.0); MEAN CORPUSCULAR HGB CONC 32.7 % (32.0-36.0); MONO % 14.4 % (0.0-8.0); PLATELET COUNT 152 TH/MM3 (150-450); RED BLOOD COUNT 3.69 MIL/MM3 (4.50-5.90); RED CELL DISTRIBUTION WIDTH 13.8 % (11.6-17.2); WHITE BLOOD COUNT 6.7 TH/MM3 (4.0-11.0)
[2016-08-18 13:23] LABS: ANION GAP 5 MEQ/L (5-15); AST (GOT) 35 U/L (15-37); BLOOD UREA NITROGEN 15 MG/DL (7-18); CHLORIDE 103 MEQ/L (98-107); GLOMERULAR FILTRATION RATE 79 ML/MIN (>89); POTASSIUM 4.1 MEQ/L (3.5-5.1); SODIUM (NA) 141 MEQ/L (136-145)
[2016-08-18 13:24] LABS: ALT (GPT) 39 U/L (12-78)
[2016-08-18 13:26] LABS: ALKALINE PHOSPHATASE 87 U/L (45-117); TOTAL BILIRUBIN ADULT 0.5 MG/DL (0.2-1.0)
[2016-08-18] MEDS ORDERED: levETIRAcetam 500 MG TAB PO ONE (15:45)
--- NOTE | 2016-08-18 16:18 | MB ---
cc: HEAVEN SHEPARD M.D. DATE OF CONSULTATION: 08/18/2016 HISTORY OF PRESENT ILLNESS He is seen in neurological consultation. He is 81. His is at bedside. He has been in the hospital for right knee surgery. He has had right knee problems for many years following an injury. He was actually getting ready to be discharged. It was noted by the physical therapy that the patient seemed to be staring and had some decreased responsiveness, needed to be redirected when he was in physical therapy and this seemed to be unusual. This may have happened with a prior physical therapy session as well. According to the , he may have had symptoms like these sometime in the past but nothing recently. No history of obvious blackouts or any seizure activity. He may have had some minor strokes in the past but no residual deficits. He is following with Dr. Rosas, my associate, for apparent mild dementia/memory problems. NEUROLOGIC EXAMINATION He was alert, pleasant, cooperative and he is oriented. There is no major dementia on a brief bedside exam. He is aware of the environment, knows the reason he is here. He followed simple commands and he was in no distress. Ocular movements and visual streeter full. No language dysfunction. He has good strength with the upper extremities. He moves the left lower extremity well. The right lower extremity is immobilized post knee surgery, total right knee arthroplasty. His reflexes were diminished but present at the elbows, trace left knee and absent left ankle. Plantar response flexor on the left. ASSESSMENT Brief decreased responsiveness/staring, possibly a brief seizure. The patient now is having an EEG and the study shows some intermittent sharp discharges left more than right hemisphere. Therefore, I suggested a trial with Keppra 500 mg twice a day and in the future he could have followup EEGs and Dr. Rosas will reassess him for continuing anticonvulsants. Evidently he is not going to be driving now because of his right knee, and I instructed the that he should not drive for six months independent of the right knee problem. He takes donepezil and Namenda and there is also a history of sleep apnea. Neurologic [place] he can be followed as outpatient by Dr. Rosas. Thank you for asking us to assist in his care. MD SAHARA Aguilar/BJF /2:22 PM /4:06 PM
--- NOTE | 2016-08-18 19:13 | RADRPT ---
EXAM DATE/TIME: 08/18/2016 17:38 [facility] COMPARISON: No previous studies available for comparison. INDICATIONS : Syncope. MEDICAL HISTORY : Hypercholesterolemia. Gastroesophageal reflux disease. Hernia, hiatal. Prostate cancer. Arthritis. SURGICAL HISTORY : Appendectomy. Right knee surgery. ENCOUNTER: Initial ACUITY: 1 day PAIN SCORE: 0/10 LOCATION: Bilateral neck PEAK SYSTOLIC VELOCITIES (cm/sec): ICA/CCA RATIO: Right: 0.8 Left: 1.2 ICA: Right: 80 Left: 101 CCA: Right: 96 Left: 81 ECA: Right: 70 Left: 97 VERTEBRAL: Right: 46 antegrade Left: 66 antegrade Elevated flow velocities and ICA/CCA ratios have been found to correlate with increased degrees of vessel stenosis, calculated as percentage of diameter relative to a normal segment of distal ICA/CCA FINDINGS: RIGHT CAROTID: No significant stenosis is visualized. The waveforms are within normal limits. LEFT CAROTID: No significant stenosis is visualized. The waveforms are within normal limits. VERTEBRAL ARTERIES: Antegrade flow is seen in both vertebral arteries. MISCELLANEOUS: None. CONCLUSION: No evidence of flow-limiting carotid stenosis. Osman Tabares MD on August 18, 2016 at 19:10 Board Certified Radiologist. This report was verified electronically.
--- NOTE | 2016-08-18 19:27 | RADRPT ---
EXAM DATE/TIME: 08/18/2016 19:06 [facility] COMPARISON: No previous studies available for comparison. INDICATIONS : Syncope. RADIATION DOSE: 39.18 CTDIvol (mGy) MEDICAL HISTORY : Carcinoma, prostate. Cardiovascular disease SURGICAL HISTORY : Fusion, cervical. ENCOUNTER: Initial ACUITY: 1 day PAIN SCALE: 0/10 LOCATION: cranial TECHNIQUE: Multiple contiguous axial images were obtained of the head. Using automated exposure control and adj ustment of the mA and/or kV according to patient size, radiation dose was kept as low as reasonably a chievable to obtain optimal diagnostic quality images. FINDINGS: There is mild periventricular white matter hypodensity which appears benign. No evidence of intracran ial mass or hemorrhage. There is nothing to suggest acute infarction. There is opacification of left- sided mastoid air cells. The paranasal sinuses are clear. CONCLUSION: No acute intracranial findings. Left-sided mastoid disease Osman Tabares MD on August 18, 2016 at 19:23 Board Certified Radiologist. This report was verified electronically.
--- NOTE | 2016-08-18 20:38 | MG ---
cc: MARYBETH REINOSO Lab No: [id number] Date: 08/18/16 Age: Sex: M Race: TECHNIQUE 17 channel EEG. DESCRIPTION The background rhythm is a symmetrical alpha rhythm, frequency of 8-10 Hz, amplitude is roughly 20 microvolts. During drowsiness, there is some slowing in the theta range at roughly 6 Hz. There is some sharp activity identified with phase reversal over the right as well as the left parietal lobe occasionally in the tracing. There are no other lateralizing features. Occasional eye movement artifact is identified. Photic results in a modest driving response. INTERPRETATION There is an abnormal study. There is sharp activity in bilateral parietal areas with phase reversal suggestive of a possible underlying epileptogenic focus. MD LEONARDO Andrade/ /7:50 PM 8:29 PM
[2016-08-18] MEDS: DONEPEZIL HCL 5 MG TAB PO SCH (20:56)
[2016-08-18] MEDS: levETIRAcetam 500 MG TAB PO SCH (20:56)
[2016-08-19 00:25] VITALS: BP 152/79; PULSE 75; RESP 18; TEMP 97; O2SAT 96
[2016-08-19 04:35] VITALS: BP 145/86; PULSE 72; RESP 18; TEMP 99.1; O2SAT 96
[2016-08-19] MEDS: ENOXAPARIN SODIUM 30 MG/0.3 ML SYRINGE SQ SCH ×2 (05:40→18:43)
[2016-08-19] MEDS: ACETAMINOPHEN/HYDROcodone 325 MG/5 MG TAB PO PRN (05:46)
[2016-08-19 08:00] VITALS: BP 148/77; PULSE 76; RESP 20; TEMP 98; O2SAT 94
[2016-08-19] MEDS: LACTATED RINGER'S 1000 ML INJ 1,000 ML IV SCH ×2 (08:30→19:58)
[2016-08-19] MEDS: ESCITALOPRAM OXALATE 20 MG TAB PO SCH (09:00)
[2016-08-19] MEDS: DOCUSATE SODIUM 50 MG/SENNA 8.6 MG TAB PO SCH ×2 (09:00→19:58)
[2016-08-19] MEDS: PANTOPRAZOLE SOD 20 MG DELAYED RELEASE TAB PO SCH (09:00)
[2016-08-19] MEDS: LACTULOSE SYRUP 20 GM/30 ML CUP PO PRN (09:00)
[2016-08-19] MEDS: MAGNESIUM HYDROXIDE SUSP 30 ML CUP PO PRN (09:00)
[2016-08-19] MEDS: ATORVASTATIN 10 MG TAB PO SCH (09:00)
[2016-08-19] MEDS: levETIRAcetam 500 MG TAB PO SCH ×2 (09:01→19:57)
[2016-08-19] MEDS: MEMANTINE HCL 10 MG TAB PO SCH ×2 (09:01→19:56)
[2016-08-19] MEDS: MULTIVITAMINS/MINERALS THERAPEUTIC TAB PO SCH ×2 (09:01→19:56)
[2016-08-19] MEDS: ASPIRIN EC 81 MG TABEC PO SCH (09:02)
[2016-08-19] MEDS: SODIUM CHLORIDE 0.9% FLUSH 5 ML FLUSH IVF SCH ×2 (09:02→19:58)
--- NOTE | 2016-08-19 09:21 | HHI.PR ---
Review/Management Daily Summary 08/19 stable eeg read by dr Carlisle, see results continue ayaka and office f/u with dr Rosas Subjective Subjective Comments No acute events reported No headache No chest pain No dyspnea Active Medications Current Medications Medications (Trade) Dose Ordered Sig/Alejandrina Route Start Time Stop Time Status Last Admin (Ecotrin Ec) 81 mg DAILY PO 08/16/16 09:00 08/19/16 09:02 (Aricept) 10 mg HS PO 08/15/16 21:00 08/18/16 20:56 (Lexapro) 20 mg DAILY PO 08/16/16 09:00 08/19/16 09:00 Memantine 10 mg 10 mg BID PO 08/15/16 21:00 08/19/16 09:01 (Lr 1000 ml Inj) 1,000 ml @ 80 mls/hr [id number] IV 08/15/16 17:00 08/16/16 05:33 (NS Flush) 2 ml UNSCH PRN IVF 08/15/16 16:30 (NS Flush) 2 ml BID IVF 08/15/16 21:00 08/19/16 09:02 (Lovenox Inj) 30 mg Q12H SQ 08/16/16 17:30 08/19/16 05:40 (Tylenol) 650 mg Q6H PRN PO 08/15/16 16:30 (Theragran M Tab) 1 tab BID PO 08/16/16 21:00 10/15/16 20:59 08/19/16 09:01 (Zofran Inj) 4 mg Q6H PRN IVP 08/15/16 16:30 (Restoril) 15 mg HS PRN PO 08/15/16 16:30 (Narcan Inj) 0.4 mg UNSCH PRN IV 08/15/16 16:30 (Benadryl Inj) 25 mg Q6H PRN IV 08/15/16 16:30 (Morphine 1 Mg/ ml PL[employer]PER[employer]OR) 30 mg UNSCH IV 08/15/16 16:30 08/15/16 19:05 (Protonix) 20 mg DAILY PO 08/16/16 09:00 08/19/16 09:00 (Lipitor) 10 mg DAILY PO 08/16/16 09:00 08/19/16 09:00 (Vasotec Inj) 1.25 mg Q6H PRN IV PUSH 08/15/16 19:15 (Yolanda-Colace) 1 tab BID PO 08/16/16 21:00 08/19/16 09:00 (Milk Of Magnesia Liq) 30 ml Q12H PRN PO 08/16/16 16:00 08/19/16 09:00 (Senokot) 17.2 mg Q12H PRN PO 08/16/16 16:00 08/16/16 20:25 (Dulcolax Supp) 10 mg DAILY PRN RECTAL 08/16/16 16:00 (Lactulose Liq) 30 ml DAILY PRN PO 08/16/16 16:00 08/19/16 09:00 ([place] 5-325 Mg) 1 tab Q4H PRN PO 08/17/16 09:00 08/19/16 05:46 ([place] 5-325 Mg) 2 tab Q4H PRN PO 08/17/16 09:00 (Keppra) 500 mg BID PO 08/18/16 21:00 08/19/16 09:01 Allergies Allergies Coded Allergies Augmentin (Unverified Allergy, Severe, unknown, 08/05/16) Bactrim (Unverified Allergy, Severe, unknown, 08/05/16) Cipro (Unverified Allergy, Severe, hives, 08/05/16) Neosporin (Unverified Allergy, Severe, hives and blistering, 08/05/16) Roxicet (Unverified Allergy, Severe, Rash, 08/05/16) Sulfa (Unverified Allergy, Severe, unknown, 08/05/16) Tramadol (Verified Allergy, Severe, RASH, 08/05/16) Exam I&O / VS 08/18/16 08/18/16 08/19/16 15:00 23:00 07:00 Intake Total 720 ml 240 ml Balance 720 ml 240 ml Intake Oral 720 ml 240 ml # Voids 4 2 # Bowel Movements 3 0 Vital Signs Date Time Temp Pulse Resp B/P Pulse Ox O2 Delivery O2 Flow Rate FiO2 08/19/16 09:13 Room Air 08/19/16 08:00 98.0 76 20 148/77 94 08/19/16 04:35 99.1 72 18 145/86 96 08/19/16 00:25 97.0 75 18 152/79 96 08/18/16 20:20 98.2 76 18 156/83 96 08/18/16 16:00 97.5 75 18 154/76 96 08/18/16 12:16 94 08/18/16 12:00 97.9 83 18 139/72 94 Objective Radiology Results Last [address] 08/18/16 0000 Signed Impressions: Service Date/Time: August 19:06 - CONCLUSION: No acute intracranial findings. Left-sided mastoid disease Osman Tabares MD Carotid Artery Ultrasound 08/18/16 0000 Signed Impressions: Service Date/Time: August 17:38 - CONCLUSION: No evidence of flow-limiting carotid stenosis. Osman Tabares MD Micro and Labs Laboratory Tests Test 08/18/16 08/18/16 12:37 12:50 Sodium Level 141 Potassium Level 4.1 Chloride Level 103 Carbon Dioxide Level 33.0 Anion Gap 5 Blood Urea Nitrogen 15 Creatinine 0.92 Estimat Glomerular Filtration 79 Rate Random Glucose 120 Calcium Level 8.7 Total Bilirubin 0.5 Aspartate Amino Transf 35 (AST/SGOT) Alanine Aminotransferase 39 (ALT/SGPT) Alkaline Phosphatase 87 Total Protein 6.2 Albumin 2.8 White Blood Count 6.7 Red Blood Count 3.69 Hemoglobin 11.3 Hematocrit 34.7 Mean Corpuscular Volume 94.0 Mean Corpuscular Hemoglobin 30.7 Mean Corpuscular Hemoglobin 32.7 Concent Red Cell Distribution Width 13.8 Platelet Count 152 Mean Platelet Volume 9.3 Neutrophils (%) (Auto) 72.0 Lymphocytes (%) (Auto) 10.3 Monocytes (%) (Auto) 14.4 Eosinophils (%) (Auto) 2.7 Basophils (%) (Auto) 0.6 Neutrophils # (Auto) 4.9 Lymphocytes # (Auto) 0.7 Monocytes # (Auto) 1.0 Eosinophils # (Auto) 0.2 Basophils # (Auto) 0.0 CBC Comment DIFF FINAL Differential Comment Shay Griffith MD Aug 19, 2016 09:21
[2016-08-19 12:00] VITALS: BP 122/76; PULSE 75; RESP 20; TEMP 97.8; O2SAT 95
--- NOTE | 2016-08-19 14:32 | HHI.PR ---
Subjective Remarks In bed, he is sleepy but awakes easily. His gate is unsteady,. He is started on keppra per neurology. Patient./ decided to go to SNF. No seizures. No lightheadedness. No n/v/d/c. Objective Vitals Vital Signs Date Time Temp Pulse Resp B/P Pulse Ox O2 Delivery O2 Flow Rate FiO2 08/19/16 12:00 97.8 75 20 122/76 95 08/19/16 09:13 Room Air 08/19/16 08:00 98.0 76 20 148/77 94 08/19/16 04:35 99.1 72 18 145/86 96 08/19/16 00:25 97.0 75 18 152/79 96 08/18/16 20:20 98.2 76 18 156/83 96 08/18/16 16:00 97.5 75 18 154/76 96 I/O 08/18/16 08/18/16 08/18/16 08/19/16 08/19/16 08/19/16 07:00 15:00 23:00 07:00 15:00 23:00 Intake Total 120 ml 720 ml 240 ml Balance 120 ml 720 ml 240 ml Intake Oral 120 ml 720 ml 240 ml # Voids 2 4 2 # Bowel Movements 0 3 0 Result Diagram: 08/18/16 1250 08/18/16 1237 Imaging Last Impressions Head CT 08/18/16 0000 Signed Impressions: Service Date/Time: August 19:06 - CONCLUSION: No acute intracranial findings. Left-sided mastoid disease Osman Tabares MD Carotid Artery Ultrasound 08/18/16 0000 Signed Impressions: Service Date/Time: August 17:38 - CONCLUSION: No evidence of flow-limiting carotid stenosis. Osman Tabares MD Knee X-Ray 08/15/16 1622 Signed Impressions: Service Date/Time: Monday, August 15, 2016 19:03 - CONCLUSION: Right knee arthroplasty has an expected postoperative appearance. No evidence of acute complication. Osman Moreno MD Objective Remarks GENERAL: This is a very pleasant 81 yo male, well-nourished, well-developed patient, in no apparent distress. NECK: Trachea midline. No JVD or lymphadenopathy. Supple, nontender, no meningeal signs. CARDIOVASCULAR: Regular rate and rhythm without murmurs, gallops, or rubs. RESPIRATORY: Clear to auscultation. Breath sounds equal bilaterally. No wheezes , rales, or rhonchi. GASTROINTESTINAL: Abdomen soft, non-tender, nondistended. No hepato-splenomegaly , or palpable masses. No guarding. MUSCULOSKELETAL: S/P Right knee repair-neurovascular intact. Extremities without clubbing, cyanosis, or edema. NEUROLOGICAL: Awake and alert. Cranial nerves II through XII intact. Motor and sensory grossly within normal limits. Five out of 5 muscle strength in all muscle groups. Normal speech. A/P Assessment and Plan 81-year-old man with Right knee osteoarthritis: Status post right total knee arthroplasty 08/15/16. Management per orthopedic surgery, continue current postop care with pain management, postop antibiotics, antiemetics. PT consult to treat and eval h/H stable post op. Patient noted with dizziness, gate abnormality, near syncope while doing PT. He has a previous h/o CVA/TIA he does follow with Dr Pelletier as OP. Will check stat CT brain, carotid US, EEG. He had a recent ECHO by his cardiology Dr Lovell who cleared him for surgery. Also EKG without change. Seizure. Patient has a h/o previous MA. Consult his neurology Dr Pelletier. EEG reviewed . Seen by Dr Reji marley, and to f/u as OP with Dr Pelletier. Sleep apnea: Patient to use his own CPAP at night. Using CPAP at night. Constipation: laxatives/stool softeners. Dementia: Continue outpatient medication including Namenda and Aricept Anxiety: Continue Lexapro DVT prophylaxis: Lovenox Thank you for this consultation, will follow along. Code Status Full code Discussed Condition With patient, nurse, family at bedside () patient needs likely SNF. OK to DC to snf , medically cleared for DC Mayi Wilkerson MD Aug 19, 2016 14:32
--- NOTE | 2016-08-19 14:50 | PD.ORT.PN ---
Subjective Subjective Remarks pt having less pain today. Having problem with focus on ambulation. Objective Vitals Vital Signs Date Time Temp Pulse Resp B/P Pulse Ox O2 Delivery O2 Flow Rate FiO2 08/19/16 12:00 97.8 75 20 122/76 95 08/19/16 09:13 Room Air 08/19/16 08:00 98.0 76 20 148/77 94 08/19/16 04:35 99.1 72 18 145/86 96 08/19/16 00:25 97.0 75 18 152/79 96 08/18/16 20:20 98.2 76 18 156/83 96 08/18/16 16:00 97.5 75 18 154/76 96 I/O 08/18/16 08/18/16 08/18/16 08/19/16 08/19/16 08/19/16 07:00 15:00 23:00 07:00 15:00 23:00 Intake Total 120 ml 720 ml 240 ml Balance 120 ml 720 ml 240 ml Intake Oral 120 ml 720 ml 240 ml # Voids 2 4 2 # Bowel Movements 0 3 0 Result Diagram: 08/18/16 1250 08/18/16 1237 Imaging Last 24 hours Impressions Knee X-Ray 08/15/16 1622 Signed Impressions: Service Date/Time: Monday, August 15, 2016 19:03 - CONCLUSION: Right knee arthroplasty has an expected postoperative appearance. No evidence of acute complication. Osman Moreno MD Objective Remarks Unsteady with PT and ambulation. Needs max assist to prevent fall. Awake, Alert X3; No acute distress Pulmonary: Normal Respiratory effect Right knee: dressing, dry and intact; coolant; nvi, no calf tenderness; negative Homans sign Assessment & Plan Ortho Post Op Day #: 4 Problem List: (1) Status post total right knee replacement Assessment and Plan Pt awaiting insurance ok for dc to snf. PT on going SNF when ok with insurance. Hal Do MD Aug 19, 2016 14:50
[2016-08-19] MEDS ORDERED: HYDR-3516 PO (14:52)
[2016-08-19 16:00] VITALS: BP 162/79; PULSE 72; RESP 20; TEMP 96.5; O2SAT 97
[2016-08-19] MEDS ORDERED: LEVE500 PO (16:44)
[2016-08-19] MEDS ORDERED: ACETAMINOPHEN 325 MG TAB PO PRN (19:00)
[2016-08-19] MEDS: DONEPEZIL HCL 5 MG TAB PO SCH (19:56)
[2016-08-19] MEDS: IBUPROFEN 200 MG TAB PO PRN (19:57)
[2016-08-19 20:05] VITALS: BP 152/76; PULSE 81; RESP 17; TEMP 99.1; O2SAT 97
[2016-08-20] VITALS: BP 153/79; PULSE 80; RESP 18; TEMP 96.8; O2SAT 95
[2016-08-20 04:20] VITALS: BP_SYST 143; BP_SYST 144; BP_DIAS 81; BP_DIAS 83; BP_DIAS 84; PULSE 78; RESP 18; TEMP 98.4; O2SAT 95
[2016-08-20] MEDS: ENOXAPARIN SODIUM 30 MG/0.3 ML SYRINGE SQ SCH ×2 (05:01→18:07)
[2016-08-20 08:00] VITALS: BP 146/80; PULSE 74; RESP 17; TEMP 97.9; O2SAT 96
[2016-08-20] MEDS: ESCITALOPRAM OXALATE 20 MG TAB PO SCH (08:02)
[2016-08-20] MEDS: MULTIVITAMINS/MINERALS THERAPEUTIC TAB PO SCH ×2 (08:02→20:27)
[2016-08-20] MEDS: PANTOPRAZOLE SOD 20 MG DELAYED RELEASE TAB PO SCH (08:02)
[2016-08-20] MEDS: levETIRAcetam 500 MG TAB PO SCH ×2 (08:02→20:27)
[2016-08-20] MEDS: MEMANTINE HCL 10 MG TAB PO SCH ×2 (08:02→20:27)
[2016-08-20] MEDS: ATORVASTATIN 10 MG TAB PO SCH (08:02)
[2016-08-20] MEDS: DOCUSATE SODIUM 50 MG/SENNA 8.6 MG TAB PO SCH ×2 (09:00→20:27)
[2016-08-20] MEDS: SODIUM CHLORIDE 0.9% FLUSH 5 ML FLUSH IVF SCH ×2 (09:00→20:27)
[2016-08-20] MEDS: LACTATED RINGER'S 1000 ML INJ 1,000 ML IV SCH ×2 (09:30→21:23)
[2016-08-20 12:00] VITALS: BP 161/81; PULSE 71; RESP 17; TEMP 96.7; O2SAT 94
[2016-08-20] MEDS: IBUPROFEN 200 MG TAB PO PRN ×2 (12:26→18:07)
[2016-08-20 16:00] VITALS: BP 156/88; PULSE 81; RESP 17; TEMP 97.4; O2SAT 98
--- NOTE | 2016-08-20 16:20 | HHI.PR ---
Subjective Remarks He is more alert and oriented today. No seizures. No nausea, vomiting, diarrhea or constipation. Continue use of CPAP overnight. Objective Vitals Vital Signs Date Time Temp Pulse Resp B/P Pulse Ox O2 Delivery O2 Flow Rate FiO2 08/20/16 12:00 96.7 71 17 161/81 94 08/20/16 08:00 97.9 74 17 146/80 96 08/20/16 04:20 98.4 78 18 144/81 95 143/84 144/83 08/20/16 00:00 96.8 80 18 153/79 95 08/19/16 20:05 99.1 81 17 152/76 97 I/O 08/19/16 08/19/16 08/19/16 08/20/16 08/20/16 08/20/16 07:00 15:00 23:00 07:00 15:00 23:00 Intake Total 240 ml 240 ml 240 ml 240 ml Balance 240 ml 240 ml 240 ml 240 ml Intake Oral 240 ml 240 ml 240 ml 240 ml # Voids 2 1 2 2 # Bowel Movements 0 0 1 1 Result Diagram: 08/18/16 1250 08/18/16 1237 Imaging Last Impressions Head CT 08/18/16 0000 Signed Impressions: Service Date/Time: August 19:06 - CONCLUSION: No acute intracranial findings. Left-sided mastoid disease Osman Tabares MD Carotid Artery Ultrasound 08/18/16 0000 Signed Impressions: Service Date/Time: August 17:38 - CONCLUSION: No evidence of flow-limiting carotid stenosis. Osman Tabares MD Knee X-Ray 08/15/16 1622 Signed Impressions: Service Date/Time: Monday, August 15, 2016 19:03 - CONCLUSION: Right knee arthroplasty has an expected postoperative appearance. No evidence of acute complication. Osman Moreno MD Objective Remarks GENERAL: This is a very pleasant 81 yo male, well-nourished, well-developed patient, in no apparent distress. NECK: Trachea midline. No JVD or lymphadenopathy. Supple, nontender, no meningeal signs. CARDIOVASCULAR: Regular rate and rhythm without murmurs, gallops, or rubs. RESPIRATORY: Clear to auscultation. Breath sounds equal bilaterally. No wheezes , rales, or rhonchi. GASTROINTESTINAL: Abdomen soft, non-tender, nondistended. No hepato-splenomegaly , or palpable masses. No guarding. MUSCULOSKELETAL: S/P Right knee repair-neurovascular intact. Extremities without clubbing, cyanosis, or edema. NEUROLOGICAL: Awake and alert. Cranial nerves II through XII intact. Motor and sensory grossly within normal limits. Five out of 5 muscle strength in all muscle groups. Normal speech. A/P Assessment and Plan 81-year-old man with Right knee osteoarthritis: Status post right total knee arthroplasty 08/15/16. Management per orthopedic surgery, continue current postop care with pain management, postop antibiotics, antiemetics. PT consult to treat and eval h/H stable post op. Patient noted with dizziness, gate abnormality, near syncope while doing PT. He has a previous h/o CVA/TIA he does follow with Dr Pelletier as OP. Will check stat CT brain, carotid US, EEG. He had a recent ECHO by his cardiology Dr Lovell who cleared him for surgery. Also EKG without change. Seizure. Patient has a h/o previous MA. Consult his neurology Dr Pelletier. EEG reviewed . Seen by Dr Reji marley, and to f/u as OP with Dr Pelletier. Sleep apnea: Patient to use his own CPAP at night. Using CPAP at night. Constipation: laxatives/stool softeners. Dementia: Continue outpatient medication including Namenda and Aricept Anxiety: Continue Lexapro DVT prophylaxis: Lovenox Thank you for this consultation, will follow along. Code Status Full code Discussed Condition With patient, nurse, family at bedside () patient needs likely SNF. OK to DC to snf , medically cleared for DC Mayi Wilkerson MD Aug 20, 2016 16:20
[2016-08-20 20:25] VITALS: BP 123/72; PULSE 82; RESP 18; TEMP 99; O2SAT 94
[2016-08-20] MEDS: DONEPEZIL HCL 5 MG TAB PO SCH (20:27)
[2016-08-21 00:30] VITALS: BP 132/73; PULSE 71; RESP 18; TEMP 97; O2SAT 95
[2016-08-21] MEDS: ENOXAPARIN SODIUM 30 MG/0.3 ML SYRINGE SQ SCH ×2 (05:36→17:58)
[2016-08-21] MEDS: IBUPROFEN 200 MG TAB PO PRN ×3 (05:36→20:23)
[2016-08-21] MEDS: MULTIVITAMINS/MINERALS THERAPEUTIC TAB PO SCH ×2 (07:50→20:23)
[2016-08-21] MEDS: MEMANTINE HCL 10 MG TAB PO SCH ×2 (07:50→20:23)
[2016-08-21] MEDS: ESCITALOPRAM OXALATE 20 MG TAB PO SCH (07:50)
[2016-08-21] MEDS: levETIRAcetam 500 MG TAB PO SCH ×2 (07:50→20:23)
[2016-08-21] MEDS: PANTOPRAZOLE SOD 20 MG DELAYED RELEASE TAB PO SCH (07:50)
[2016-08-21] MEDS: ATORVASTATIN 10 MG TAB PO SCH (07:50)
[2016-08-21] MEDS: SODIUM CHLORIDE 0.9% FLUSH 5 ML FLUSH IVF SCH ×2 (07:51→20:23)
[2016-08-21 08:00] VITALS: BP 153/89; PULSE 79; RESP 16; TEMP 97.6; O2SAT 98
[2016-08-21] MEDS: DOCUSATE SODIUM 50 MG/SENNA 8.6 MG TAB PO SCH ×2 (09:00→20:23)
[2016-08-21] MEDS: LACTATED RINGER'S 1000 ML INJ 1,000 ML IV SCH ×2 (10:30→21:23)
[2016-08-21 12:15] VITALS: BP 120/69; PULSE 78; RESP 17; TEMP 97.4; O2SAT 96
--- NOTE | 2016-08-21 15:28 | HHI.PR ---
Subjective Remarks Discharge and process. Discharge pending insurance approval. Patient has no new complaints and seen today. He is looking for to discharge. Objective Vital Signs Date Time Temp Pulse Resp B/P Pulse Ox O2 Delivery O2 Flow Rate FiO2 08/21/16 12:15 97.4 78 17 120/69 96 08/21/16 08:00 97.6 79 16 153/89 98 08/21/16 00:30 97.0 71 18 132/73 95 08/20/16 20:25 99.0 82 18 123/72 94 08/20/16 16:00 97.4 81 17 156/88 98 I/O 08/20/16 08/20/16 08/20/16 08/21/16 08/21/16 08/21/16 07:00 15:00 23:00 07:00 15:00 23:00 Intake Total 240 ml 720 ml 240 ml 120 ml Balance 240 ml 720 ml 240 ml 120 ml Intake Oral 240 ml 720 ml 240 ml 120 ml # Voids 2 5 2 3 # Bowel Movements 1 2 1 0 Result Diagram: 08/18/16 1250 08/18/16 1237 Objective Remarks GENERAL: NAD, A&Ox3 HEAD: Normocephalic. NECK: Supple, trachea midline. No lymphadenopathy. EYES: No scleral icterus. No injection or drainage. CARDIOVASCULAR: Regular rate and rhythm without murmurs, gallops, or rubs. RESPIRATORY: Breath sounds equal bilaterally. No accessory muscle use. GASTROINTESTINAL: Abdomen soft, non-tender, nondistended. MUSCULOSKELETAL: No cyanosis, or edema. Bandaged right knee. SKIN: Warm and dry. NEURO: No focal neurological deficitis. A/P Problem List: (1) Dementia ICD Code: F03.90 (2) Osteoarthritis of right knee ICD Code: M17.11 Assessment and Plan Assessment and Plan 81-year-old man status post right total knee arthroplasty on 08/15/16 Status post right total knee arthroplasty Ortho Evra following Patient has been discharged Insurance status pending for placement Continue when necessary pain treatments Continue physical therapy Medically stable for discharge to correction facility Sleep apnea: Continue CPAP at night Constipation: Continue laxatives/stool softeners. Dementia: Continue Namenda and Aricept Anxiety: Continue Lexapro DVT prophylaxis: Matthew Steven MD Aug 21, 2016 15:28
[2016-08-21 16:00] VITALS: BP 158/97; PULSE 81; RESP 17; TEMP 98.2; O2SAT 98
[2016-08-21] MEDS: DONEPEZIL HCL 5 MG TAB PO SCH (20:23)
[2016-08-21 20:40] VITALS: BP 155/85; PULSE 90; RESP 18; TEMP 99.4; O2SAT 93
[2016-08-22 00:35] VITALS: BP 145/87; PULSE 89; RESP 18; TEMP 99.3; O2SAT 92
[2016-08-22] MEDS: ENOXAPARIN SODIUM 30 MG/0.3 ML SYRINGE SQ SCH (05:41)
[2016-08-22 08:00] VITALS: BP 146/88; PULSE 63; RESP 18; TEMP 95.7; O2SAT 98
[2016-08-22] MEDS: SODIUM CHLORIDE 0.9% FLUSH 5 ML FLUSH IVF SCH (09:00)
[2016-08-22] MEDS: levETIRAcetam 500 MG TAB PO SCH (09:09)
[2016-08-22] MEDS: ESCITALOPRAM OXALATE 20 MG TAB PO SCH (09:09)
[2016-08-22] MEDS: MEMANTINE HCL 10 MG TAB PO SCH (09:09)
[2016-08-22] MEDS: DOCUSATE SODIUM 50 MG/SENNA 8.6 MG TAB PO SCH (09:09)
[2016-08-22] MEDS: PANTOPRAZOLE SOD 20 MG DELAYED RELEASE TAB PO SCH (09:10)
[2016-08-22] MEDS: ATORVASTATIN 10 MG TAB PO SCH (09:10)
[2016-08-22] MEDS: MULTIVITAMINS/MINERALS THERAPEUTIC TAB PO SCH (09:10)
--- NOTE | 2016-08-22 10:41 | HHI.PR ---
Subjective Remarks Awaiting insurance approval for SNF placement. Patient is medically cleared for discharge. Patient has no new complaints and seen today. He is looking for to discharge. Objective Vital Signs Date Time Temp Pulse Resp B/P Pulse Ox O2 Delivery O2 Flow Rate FiO2 08/22/16 08:00 95.7 63 18 146/88 98 08/22/16 00:35 99.3 89 18 145/87 92 08/21/16 20:40 99.4 90 18 155/85 93 08/21/16 16:00 98.2 81 17 158/97 98 08/21/16 12:15 97.4 78 17 120/69 96 I/O 08/21/16 08/21/16 08/21/16 08/22/16 08/22/16 08/22/16 07:00 15:00 23:00 07:00 15:00 23:00 Intake Total 120 ml 720 ml 240 ml 120 ml Balance 120 ml 720 ml 240 ml 120 ml Intake Oral 120 ml 720 ml 240 ml 120 ml # Voids 3 5 1 2 # Bowel Movements 0 0 0 0 Result Diagram: 08/18/16 1250 08/18/16 1237 Objective Remarks GENERAL: NAD, A&Ox3 HEAD: Normocephalic. NECK: Supple, trachea midline. No lymphadenopathy. EYES: No scleral icterus. No injection or drainage. CARDIOVASCULAR: Regular rate and rhythm without murmurs, gallops, or rubs. RESPIRATORY: Breath sounds equal bilaterally. No accessory muscle use. GASTROINTESTINAL: Abdomen soft, non-tender, nondistended. MUSCULOSKELETAL: No cyanosis, or edema. Bandaged right knee. SKIN: Warm and dry. NEURO: No focal neurological deficitis. A/P Problem List: (1) Dementia ICD Code: F03.90 (2) Osteoarthritis of right knee ICD Code: M17.11 Assessment and Plan Assessment and Plan 81-year-old man status post right total knee arthroplasty on 08/15/16. Medically stable for discharge when SNF available Status post right total knee arthroplasty Ortho following Patient has been discharged Insurance status pending for placement Continue when necessary pain treatments Continue physical therapy Medically stable for discharge to long-term facility Sleep apnea: Continue CPAP at night Constipation: Continue laxatives/stool softeners. Dementia: Continue Namenda and Aricept Anxiety: Continue Lexapro DVT prophylaxis: Matthew Steven MD Aug 22, 2016 10:41 am
== END 2016-08-22 11:26 | DRG 470 ==
LOC: HSDI 08-15 12:20 → N06A 08-15 20:06
PROVIDERS: ADMIT Surgery; ATTEND Surgery
PROC: 3E0T3CZ (ICD-10-PCS; 2016-08-15)
PROC: 0SRC0J9 Replacement of Right Knee Joint with Synthetic Substitute, Cemented, Open Approach (ICD-10-PCS; principal; 2016-08-15 16:00)
DX: M17.11 Unilateral primary osteoarthritis, right knee (principal); F03.90 Unspecified dementia, unspecified severity, without behavioral disturbance, psychotic disturbance, mood disturbance, and anxiety; R55 Syncope and collapse; F32.9 Major depressive disorder, single episode, unspecified; G47.30 Sleep apnea, unspecified; F41.9 Anxiety disorder, unspecified; K59.00 Constipation, unspecified; R42 Dizziness and giddiness; Z98.1 Arthrodesis status; Z95.1 Presence of aortocoronary bypass graft; Z85.46 Personal history of malignant neoplasm of prostate; Z86.73 Personal history of transient ischemic attack (TIA), and cerebral infarction without residual deficits
CPT/HCPCS: 70450; 73560; 80053; 85014; 85018; 85025; 86850; 86900; 86901; 93880; 94150; 95819; C1776; J0690; J1100; J1650; J2270; J2405; J2795; J3260; J3370; J7050; J7120; L1830

== ENCOUNTER → 2016-08-05 | Outpatient (CLI) | payer MEDICARE ==
[~2016-08-05] MED LIST: ADJUSTABLE COMM1 MIS; ASPI-110 PO; ASPI81CH37 CHEW; CPMMACHINE; DONE10TA7 PO; ESCI20TA PO; FLAX10008 PO; HYDR-3516 PO; LEVE500 PO; MEMA1TAB2 PO; MULTTAB67 PO; NEXI20CA PO; NEXI40CA PO; ROSU5 PO; TAB-TAB PO; VYTO10TA35 PO; VYTO10TA9 PO; WALKER WHEELS/F1 MIS
[2016-08-05 10:09] LABS: BASOPHIL % 0.6 % (0.0-2.0); EOSINOPHIL # 0.2 TH/MM3 (0-0.4); EOSINOPHIL % 3.7 % (0.0-4.0); HEMATOCRIT 39.8 % (39.0-51.0); HEMO FLAGS DIFF FINAL; LYMPH % 14.8 % (9.0-44.0); LYMPHOCYTE # 0.8 TH/MM3 (1.0-4.8); MEAN CELL VOLUME 92.2 FL (80.0-100.0); MEAN CORPUSCULAR HEMOGLOBIN 31.5 PG (27.0-34.0); MEAN CORPUSCULAR HGB CONC 34.1 % (32.0-36.0); MONO % 11.7 % (0.0-8.0); NEUT % 69.2 % (16.0-70.0); PLATELET COUNT 175 TH/MM3 (150-450); RED BLOOD COUNT 4.32 MIL/MM3 (4.50-5.90); RED CELL DISTRIBUTION WIDTH 13.9 % (11.6-17.2); WHITE BLOOD COUNT 5.7 TH/MM3 (4.0-11.0)
[2016-08-05 10:15] LABS: APTT (PATIENT) 27.6 SEC (24.3-30.1); PROTHROMBIN TIME - PATIENT 11.2 SEC (9.8-11.6)
[2016-08-05 10:28] LABS: ALT (GPT) 22 U/L (12-78); ANION GAP 5 MEQ/L (5-15); AST (GOT) 16 U/L (15-37); BICARBONATE 31.5 MEQ/L (21.0-32.0); BLOOD UREA NITROGEN 19 MG/DL (7-18); CHLORIDE 108 MEQ/L (98-107); GLOMERULAR FILTRATION RATE 67 ML/MIN (>89); GLUCOSE,FASTING 90 MG/DL (74-99); POTASSIUM 4.3 MEQ/L (3.5-5.1); SODIUM (NA) 144 MEQ/L (136-145)
[2016-08-05 10:31] LABS: ALKALINE PHOSPHATASE 85 U/L (45-117); TOTAL BILIRUBIN ADULT 0.5 MG/DL (0.2-1.0)
[2016-08-05 12:16] LABS: BLOOD, URINE NEG (NEG); COMMENT (UR) CULT NOT INDICATED; CULTURE IF INDICATED CULT NOT INDICATED; GLUCOSE,URINE NEG (NEG); KETONE, URINE NEG (NEG); MUCUS URINE MANY /lpf (OCC); NITRITE,URINE NEG (NEG); PH, URINE 5.5 (5.0-8.5); URINE COLOR YELLOW (YELLW/STRAW)
--- NOTE | 2016-08-06 16:39 | EKG ---
Date Performed: 08/05/2016 Time Performed: 11:25:55 PTAGE: 81 years EKG: Sinus bradycardia Within normal limits Since PREVIOUS TRACING 08/24/2010, heart rate is slower, otherwise no significant change. PREV IOUS TRACIN08/24/2010 03.07 DOCTOR: Kem Lentz Interpretating Date/Time 08/06/2016 16:38:02
== END ==
LOC: CPRE 09:14
PROVIDERS: ATTEND Surgery
DX: Z01.812 Encounter for preprocedural laboratory examination (principal); Z01.810 Encounter for preprocedural cardiovascular examination; Z79.01 Long term (current) use of anticoagulants; R00.1 Bradycardia, unspecified
CPT/HCPCS: 36415; 80053; 81001; 85025; 85610; 85730; 93005